=== PATIENT | male | born 1980 | race Caucasian/White ===

== ENCOUNTER 2020-03-14 11:41 | Inpatient (IN) | payer OTHER ==
[~2020-03-14] VITALS: Ht 167.6 cm; Wt 78.5 kg
[2020-03-14] MEDS ORDERED: ZIAC 2.5-6.251 EACH PO (12:16)
[2020-04-15] MEDS ORDERED: FUROSEMIDE40 MG PO (12:59)
[2020-04-15] MEDS ORDERED: Neurin-Sl Tablet Sl SL (12:59)
[2020-04-15] MEDS ORDERED: INTEGRA PLUS C1 EACH PO (12:59)
[2020-04-15] MEDS ORDERED: METOPROLOL TART50 MG PO (12:59)
== END 2020-04-15 17:31 | disposition home or self-care (01) | DRG 288 ==
LOC: ER 11:41 → SURH 22:37 → MEDI 22:37 → MEDJ 22:37 → SURH 03-15 01:31 → MEDJ 03-15 01:38 → SURH 03-15 03:09 → SEC-K 03-15 04:24 → MEDJ 03-15 10:20 → MEDI 03-17 15:57
PROVIDERS: ADMIT Internal Medicine; ATTEND Internal Medicine
PROC: 8E0ZXY6 Isolation (ICD-10-PCS; principal; 2020-03-14)
PROC: CW1NLZZ Planar Nuclear Medicine Imaging of Whole Body using Gallium 67 (Ga-67) (ICD-10-PCS; 2020-03-14)
PROC: CB2YYZZ Tomographic (Tomo) Nuclear Medicine Imaging of Respiratory System using Other Radionuclide (ICD-10-PCS; 2020-03-14)
PROC: 30233N1 Transfusion of Nonautologous Red Blood Cells into Peripheral Vein, Percutaneous Approach (ICD-10-PCS; 2020-03-15)
PROC: B338ZZZ Magnetic Resonance Imaging (MRI) of Bilateral Internal Carotid Arteries (ICD-10-PCS; 2020-03-17)
PROC: B24BZZ4 Ultrasonography of Heart with Aorta, Transesophageal (ICD-10-PCS; 2020-03-19)
PROC: 4A12X4Z Monitoring of Cardiac Electrical Activity, External Approach (ICD-10-PCS; 2020-03-23)
PROC: B54DZZZ Ultrasonography of Bilateral Lower Extremity Veins (ICD-10-PCS; 2020-03-28)
PROC: B24BZZZ Ultrasonography of Heart with Aorta (ICD-10-PCS; 2020-04-07)
DX: I33.9 Acute and subacute endocarditis, unspecified (principal); I51.1 Rupture of chordae tendineae, not elsewhere classified; R78.81 Bacteremia; D64.9 Anemia, unspecified; I10 Essential (primary) hypertension; R16.1 Splenomegaly, not elsewhere classified; I87.2 Venous insufficiency (chronic) (peripheral); B95.4 Other streptococcus as the cause of diseases classified elsewhere; I34.0 Nonrheumatic mitral (valve) insufficiency
CPT/HCPCS: 70544